=== PATIENT | male | born 1970 | race Caucasian/White ===

== ENCOUNTER → 2024-11-26 | Outpatient (CLI) | payer BC ==
--- NOTE | 2024-11-26 10:44 | XR ---
EXAMINATION TYPE: XR spine complete AP and Lat DATE OF EXAM: 11/26/2024 10:03 AM COMPARISON: None CLINICAL INDICATION: Male, 54 years old with history of M54.10 Radicular pain; PHH, pain TECHNIQUE: 9 images are provided. FINDINGS: Cervical spine: Reversal of the normal cervical lordosis but with preserved alignment. Prior C6-C7 AC DF. Moderate degenerative disc disease C4-C5 and C5-C6 above the fusion. Mild to moderate facet and u ncovertebral joint arthropathy mid to lower cervical spine. No predental space widening or prevertebr al soft tissue swelling. Normal odontoid view. Thoracic spine: 12 rib bearing thoracic vertebral bodies. All pedicles are visualized. There is mild to moderate degenerative disc disease mid thoracic spine and also lower thoracic spine. Vertebral bod y heights are preserved and alignment is maintained. Lumbar spine: There are 5 lumbar-type vertebral bodies. There is right-sided posterior lumbar fusion across L4-L5 a s well as interbody fusion and right-sided laminectomy. Cholecystectomy clips. Mild degenerative disc disease throughout, more mild to moderate above the fusion at L2-L4. Facet arthropathy also above th e fusion at L3-L4 with grade 1 retrolisthesis. Vertebral body heights are preserved. IMPRESSION: 1. Cervical spine: Status post C6-C7 ACDF with moderate spondylotic change above the fusion especiall y C4-C5 and C5-C6. Reversal of the normal cervical lordosis but with preserved alignment. 2. Thoracic spine: Mild to moderate degenerative disc disease mid and lower thoracic spine. No verteb ral compression collapse or malalignment. 3. Lumbar spine: Status post L4-L5 posterior and interbody fusion. Posterior fusion hardware is prese nt on the right along with right-sided laminectomy. Mild to moderate degenerative disc disease above the fusion at L3-L4 along with facet arthropathy and degenerative grade 1 retrolisthesis. No vertebra l compression collapse. [facility], , 11/26/2024 10:42 AM
== END | disposition home or self-care (01) ==
LOC: RADXRMAIN 09:36
PROVIDERS: ATTEND Family Medicine
DX: M51.14 Intervertebral disc disorders with radiculopathy, thoracic region (principal); M51.16 Intervertebral disc disorders with radiculopathy, lumbar region; M47.22 Other spondylosis with radiculopathy, cervical region; M43.16 Spondylolisthesis, lumbar region; M47.26 Other spondylosis with radiculopathy, lumbar region; Z98.1 Arthrodesis status
CPT/HCPCS: 72082